=== PATIENT | female | born 1950 | race Caucasian/White ===

== ENCOUNTER 2018-11-18 08:30 | Day surgery (SDC) | payer MEDICARE ==
[2018-11-14 14:35] VITALS: BP 155/77
[2018-11-14 14:45] LABS: BASOPHILS % (AUTO) 3.6 % (0.0-5.0); EOSINOPHILS % (AUTO) 5.2 % (0.0-8.0); LYMPHOCYTES % (AUTO) 30.3 % (21.0-51.0); MEAN CORPUSCULAR HEMOGLOBIN 31.3 pg (27.0-33.0); MEAN CORPUSCULAR HGB CONC 34.3 g/dL (32.0-36.0); MEAN CORPUSCULAR VOLUME 91.1 fL (79-99); MONOCYTES % (AUTO) 9.7 % (3.0-13.0); NEUTROPHILS % (AUTO) 51.2 % (40.0-77.0); PLATELET COUNT (AUTO) 367 K/uL (130-400); RED BLOOD CELL COUNT(AUTO) 4.82 MIL/uL (4.00-5.50); RED CELL DISTRIBUTION WIDTH 12.5 % (11.0-15.5); WHITE BLOOD COUNT (AUTO) 7.4 K/uL (4.8-10.8)
[2018-11-14 14:51] LABS: APPEARANCE,URINE CLOUDY (CLEAR); BILIRUBIN,URINE NEGATIVE (NEGATIVE); COLOR,URINE YELLOW (YELLOW); GLUCOSE, URINE (UA) NEGATIVE (NEGATIVE); KETONES,URINE NEGATIVE (NEGATIVE); LEUKOCYTE ESTERASE ,URINE SMALL (NEGATIVE); NITRATE,URINE POSITIVE (NEGATIVE); OCCULT BLOOD,URINE NEGATIVE (NEGATIVE); PROTEIN,URINE NEGATIVE (NEGATIVE)
[2018-11-14 14:52] LABS: POTASSIUM 3.9 mmol/L (3.5-5.1)
[2018-11-14 14:57] LABS: BACTERIA,URINE Moderate /HPF (None Seen); RBC,URINE 0-1 /HPF (0-1)
[2018-11-14 14:58] LABS: SQUAMOUS EPITHELIAL CELL,UR Rare /HPF (0-2)
--- NOTE | 2018-11-17 14:00 | NUR ---
ABNORMAL LABS UA RESULT FAXED TO DR. SANTA'S OFFICE EARLIER FOR REVIEW. CALL BACK FROM CLINIC, SPOKE TO LAVONNE. PER DR. SANTA, NO FURTHER ORDERS. MAY PROCEED WITH PLANNED PROCEDURE.
[2018-11-18] VITALS (13 sets, daily range): BP systolic 116–126; BP diastolic 60–81
[~2018-11-18] VITALS: Ht 165.1 cm; Wt 84.6 kg
[~2018-11-18 08:30] MED LIST: LACTATED RINGERS 1000ML 1,000 ML IV SCH
[2018-11-18] MEDS: CEFAZOLIN SODIUM 1 GM VIAL IVP SCH ×2 (09:00→10:40)
[2018-11-18] MEDS ORDERED: LEVO25TA54 PO (09:48)
[2018-11-18] MEDS ORDERED: AMLO-128 PO (09:48)
[2018-11-18] MEDS ORDERED: CELE100C97 PO (09:48)
[2018-11-18] MEDS ORDERED: FLUT15.88 NS (09:48)
[2018-11-18] MEDS ORDERED: DULO60CA63 PO (09:48)
[2018-11-18] MEDS ORDERED: CETI10TA57 PO (09:48)
[2018-11-18] MEDS ORDERED: TOLT4CAP13 PO (09:48)
[2018-11-18] MEDS ORDERED: TRAM50TA4 PO (09:48)
[2018-11-18] MEDS ORDERED: LIDOCAINE PF 2% 5ML ABBOJECT ONE (10:11)
[2018-11-18] MEDS ORDERED: MIDAZOLAM HCL 1 MG/ML 2ML VIAL ONE (10:11)
[2018-11-18] MEDS ORDERED: PROPOFOL 10 MG/ML 20ML VIAL IV ONE (10:11)
[2018-11-18] MEDS ORDERED: ROCURONIUM 10MG/1ML SYR 10 MG/ML ML ONE (10:11)
[2018-11-18] MEDS ORDERED: FENTANYL CITRATE PF 50 MCG/1 ML 5ML AMP IV ONE (10:12)
[2018-11-18] MEDS ORDERED: BUPIVACAINE/PF 0.25% 30ML VIAL IJ ONE (10:49)
[2018-11-18] MEDS ORDERED: ONDANSETRON HCL 4 MG/2 ML VIAL ONE (10:52)
[2018-11-18] MEDS ORDERED: DEXAMETHASONE SOD PHOSPHATE 10MG/ML 1ML VIAL ONE (10:53)
[2018-11-18] MEDS ORDERED: NEOSTIGMINE 5MG/5ML SYR IV ONE (11:30)
[2018-11-18] MEDS ORDERED: GLYCOPYRROLATE 1 MG/5 ML SYRINGE ONE (11:30)
== END 2018-11-18 13:31 | disposition home or self-care (01) ==
LOC: DAH 08:30
PROVIDERS: ATTEND Surgery
DX: K42.9 Umbilical hernia without obstruction or gangrene (principal); K43.2 Incisional hernia without obstruction or gangrene; I10 Essential (primary) hypertension; I25.2 Old myocardial infarction; M19.90 Unspecified osteoarthritis, unspecified site; E03.9 Hypothyroidism, unspecified
CPT/HCPCS: 36415; 49560; 49568; 49585; 80048; 81001; 85025; 93005; A4450; A4452; A4600; A4606; C1781; J0690; J1100; J2001; J2250; J2405; J2704; J2710; J3010; J3490 ×2; J7120 ×2

== ENCOUNTER 2020-07-24 21:51 | Inpatient (IN) | payer MEDICARE ==
[~2020-07-24] VITALS: Ht 165.1 cm; Wt 83.9 kg
[~2020-07-24 21:51] MED LIST changes: +AMLO-142 PO; +CELE100C97 PO; +CETI10TA57 PO; +DULO60CA64 PO; +FLUT15.845 NS; -LACTATED RINGERS 1000ML 1,000 ML IV SCH; +LEVO25TA54 PO; +TOLT4CAP27 PO; +TRAM50TA4 PO
[2020-07-24] MEDS ORDERED: FAMOTIDINE 20MG VIAL IV ONE (22:16)
[2020-07-24] MEDS ORDERED: 0.9%NACL 1000ML 1,000 ML IV ONE (22:17)
[2020-07-24 22:20] LABS: BASOPHILS % (AUTO) 0.4 % (0.0-5.0); EOSINOPHILS % (AUTO) 0.5 % (0.0-8.0); HEMATOCRIT 46.1 % (36-48); LYMPHOCYTES % (AUTO) 11.9 % (21.0-51.0); MEAN CORPUSCULAR HEMOGLOBIN 30.4 pg (27.0-33.0); MEAN CORPUSCULAR HGB CONC 34.7 g/dL (32.0-36.0); MEAN CORPUSCULAR VOLUME 87.6 fL (79-99); MONOCYTES % (AUTO) 10.2 % (3.0-13.0); NEUTROPHILS % (AUTO) 76.1 % (40.0-77.0); PLATELET COUNT (AUTO) 294 K/uL (130-400); RED BLOOD CELL COUNT(AUTO) 5.26 MIL/uL (4.00-5.50); RED CELL DISTRIBUTION WIDTH 12.9 % (11.0-15.5); WHITE BLOOD COUNT (AUTO) 20.5 K/uL (4.8-10.8)
[2020-07-24 22:20] LABS: APPEARANCE,URINE Clear (CLEAR); BILIRUBIN,URINE Negative (NEGATIVE); COLOR,URINE Yellow (YELLOW); GLUCOSE, URINE (UA) Negative (NEGATIVE); KETONES,URINE Negative (NEGATIVE); LEUKOCYTE ESTERASE ,URINE Trace (NEGATIVE); NITRATE,URINE Negative (NEGATIVE); OCCULT BLOOD,URINE Negative (NEGATIVE); PH,URINE 6.5 (5.0-8.0); PROTEIN,URINE Negative (NEGATIVE)
[2020-07-24 22:29] LABS: BACTERIA,URINE Few /HPF (None Seen); MUCUS,URINE Moderate LPF (None Seen); RBC,URINE None Seen /HPF (0-1); SQUAMOUS EPITHELIAL CELL,UR Moderate /HPF (0-2)
[2020-07-24 22:33] LABS: CREATININE 1.4 mg/dL (0.5-1.5); POTASSIUM 3.7 mmol/L (3.5-5.1)
[2020-07-24 22:38] LABS: ALBUMIN 3.4 g/dL (3.5-5.0); BILIRUBIN,TOTAL 0.8 mg/dL (0.2-1.0); TOTAL PROTEIN, SERUM 7.5 g/dL (6.0-8.3)
[2020-07-24] MEDS ORDERED: LEVOFLOXACIN 500 MG/D5W 100 ML 100 ML ONE (23:22)
[2020-07-24] MEDS ORDERED: METRONIDAZOLE 500MG/100ML BAG 100 ML ONE (23:23)
[2020-07-25] MEDS ORDERED: GUAIFENESIN-DM 200/20 MG 10 ML PO PRN (00:15)
[2020-07-25] MEDS ORDERED: ACETAMINOPHEN 325 MG TAB PO PRN ×2 (00:15)
[2020-07-25] MEDS ORDERED: DiphenhydrAMINE HCL 50 MG/ML VIAL IV PRN (00:15)
[2020-07-25] MEDS ORDERED: LACTULOSE 20 GM/30 ML UDCUP PO PRN (00:15)
[2020-07-25] MEDS ORDERED: MAG/ALUM/SIMETH 30 ML UDCUP PO PRN (00:15)
[2020-07-25] MEDS ORDERED: NITROGLYCERIN 0.4 MG SL TAB SL PRN (00:15)
[2020-07-25] MEDS ORDERED: DIPHENHYDRAMINE HCL 25 MG CAPSULE PO PRN (00:15)
[2020-07-25] MEDS ORDERED: ONDANSETRON 4MG INJ IV PRN (00:15)
[2020-07-25] MEDS ORDERED: MORPHINE 2 MG SYG IV PRN (00:15)
[2020-07-25] MEDS: DEXTROSE 5%-LACTATED RINGERS 1,000 ML IV SCH ×2 (00:15→10:15)
[2020-07-25] MEDS ORDERED: ZOSYN 3.375GM+NS 50ML 50 ML IV ONE ×2 (00:44→19:11)
[2020-07-25] MEDS ORDERED: DEXTROSE 5%-LACTATED RINGERS 1,000 ML IV ONE (00:44)
[2020-07-25 01:20] LABS: HEMOGLOBIN A1C 5.7 % (4.0-6.0)
[2020-07-25 07:03] LABS: BASOPHILS % (AUTO) 0.4 % (0.0-5.0); EOSINOPHILS % (AUTO) 0.6 % (0.0-8.0); LYMPHOCYTES % (AUTO) 13.6 % (21.0-51.0); MEAN CORPUSCULAR HEMOGLOBIN 30.4 pg (27.0-33.0); MEAN CORPUSCULAR HGB CONC 34.5 g/dL (32.0-36.0); MEAN CORPUSCULAR VOLUME 88.1 fL (79-99); MONOCYTES % (AUTO) 10.2 % (3.0-13.0); NEUTROPHILS % (AUTO) 74.6 % (40.0-77.0); PLATELET COUNT (AUTO) 241 K/uL (130-400); RED BLOOD CELL COUNT(AUTO) 4.77 MIL/uL (4.00-5.50); WHITE BLOOD COUNT (AUTO) 14.5 K/uL (4.8-10.8)
[2020-07-25 07:24] LABS: INR 1.09 (0.85-1.15); PROTHROMBIN TIME 11.8 SEC (9.6-11.6)
[2020-07-25 07:26] LABS: PARTIAL THROMBOPLASTIN TIME 26.5 SEC (26.3-35.5)
[2020-07-25 07:27] LABS: ALBUMIN 2.9 g/dL (3.5-5.0); BILIRUBIN,TOTAL 0.8 mg/dL (0.2-1.0); POTASSIUM 3.6 mmol/L (3.5-5.1); TOTAL PROTEIN, SERUM 6.6 g/dL (6.0-8.3)
[2020-07-25] MEDS: ZOSYN 3.375GM+NS 50ML 50 ML IV SCH ×3 (08:00→16:00)
[2020-07-25] MEDS ORDERED: METO75TA PO (08:20)
[2020-07-25] MEDS ORDERED: DULO60CA64 PO (08:20)
[2020-07-25] MEDS ORDERED: AMLO-258 PO (08:20)
[2020-07-25] MEDS ORDERED: BENA40TA92 PO (08:20)
[2020-07-25] MEDS: FAMOTIDINE 20MG VIAL IV SCH ×2 (09:00→21:00)
[2020-07-25] MEDS: ENOXAPARIN SODIUM 30 MG/0.3 ML SQ SCH (09:00)
[2020-07-25] MEDS ORDERED: FAMOTIDINE 20MG VIAL IV ONE ×2 (09:03→21:39)
[2020-07-25] MEDS ORDERED: ENOXAPARIN SODIUM 30 MG/0.3 ML SQ ONE (09:03)
[2020-07-25] MEDS ORDERED: METOPROLOL TARTRATE 50 MG TAB ONE ×2 (09:36→21:32)
[2020-07-25] MEDS ORDERED: AMLODIPINE 5 MG TAB ONE (09:36)
[2020-07-25] MEDS ORDERED: METOPROLOL TARTRATE 25 MG TAB ONE (09:37)
[2020-07-25] MEDS: BENAZEPRIL HCL 10 MG TABLET PO SCH (21:00)
[2020-07-25] MEDS: METOPROLOL TARTRATE 50 MG TAB PO SCH (21:00)
[2020-07-25] MEDS: PEG 3350/NA SULF,BICARB,CL/KCL 4000 ML SOLN PO SCH (22:00)
[2020-07-26] MEDS ORDERED: ZOSYN 3.375GM+NS 50ML 50 ML IV ONE (00:02)
[2020-07-26] MEDS ORDERED: ACETAMINOPHEN 325 MG TAB ONE (00:02)
[2020-07-26 04:50] VITALS: BP 135/71
[2020-07-26 06:05] LABS: BASOPHILS % (AUTO) 0.9 % (0.0-5.0); EOSINOPHILS % (AUTO) 2.8 % (0.0-8.0); HEMATOCRIT 41.3 % (36-48); LYMPHOCYTES % (AUTO) 19.7 % (21.0-51.0); MEAN CORPUSCULAR HEMOGLOBIN 30.1 pg (27.0-33.0); MEAN CORPUSCULAR HGB CONC 33.7 g/dL (32.0-36.0); MEAN CORPUSCULAR VOLUME 89.4 fL (79-99); NEUTROPHILS % (AUTO) 67.3 % (40.0-77.0); PLATELET COUNT (AUTO) 222 K/uL (130-400); RED BLOOD CELL COUNT(AUTO) 4.62 MIL/uL (4.00-5.50); RED CELL DISTRIBUTION WIDTH 12.9 % (11.0-15.5); WHITE BLOOD COUNT (AUTO) 12.1 K/uL (4.8-10.8)
[2020-07-26 07:28] LABS: ALBUMIN 3.1 g/dL (3.5-5.0); BILIRUBIN,TOTAL 0.7 mg/dL (0.2-1.0); CREATININE 1.2 mg/dL (0.5-1.5); CRP QUANTITATIVE 71.4 mg/L (0.00-9.0); POTASSIUM 3.1 mmol/L (3.5-5.1); TOTAL PROTEIN, SERUM 6.6 g/dL (6.0-8.3)
[2020-07-26] MEDS ORDERED: PEG 3350/NA SULF,BICARB,CL/KCL 4000 ML SOLN PO PRN (07:30)
[2020-07-26 08:21] VITALS: BP 146/64
[2020-07-26] MEDS: ZOSYN 3.375GM+NS 50ML 50 ML IV SCH ×3 (08:45→15:44)
[2020-07-26] MEDS: FAMOTIDINE 20MG VIAL IV SCH ×2 (08:45→19:58)
[2020-07-26] MEDS: LEVOTHYROXINE 25 MCG TABLET PO SCH (08:45)
[2020-07-26] MEDS: METOPROLOL TARTRATE 50 MG TAB PO SCH ×2 (08:46→19:59)
[2020-07-26] MEDS: AMLODIPINE 5 MG TAB PO SCH (08:47)
[2020-07-26] MEDS: ENOXAPARIN SODIUM 30 MG/0.3 ML SQ SCH ×2 (08:52→21:29)
[2020-07-26] MEDS ORDERED: POTASSIUM CHLORIDE 20MEQ/100ML 100 ML IV PRN ×2 (09:30→10:30)
[2020-07-26] MEDS ORDERED: MAGNESIUM 2GM PREMIX 50ML 50 ML IV PRN (09:30)
[2020-07-26] MEDS ORDERED: LIDOCAINE HCL-MPF 1% 2ML VIAL IV PRN (10:30)
[2020-07-26] MEDS ORDERED: POTASSIUM CHLORIDE 10% ELIXIR 20 MEQ/15 ML UDCUP PO PRN (10:30)
[2020-07-26] MEDS: KCL 20 MEQ ERTAB PO PRN ×3 (11:07→15:44)
[2020-07-26] MEDS: DULOXETINE HCL 30 MG CAP PO SCH (11:07)
[2020-07-26 11:37] VITALS: BP 132/75
[2020-07-26] MEDS: PEG 3350/NA SULF,BICARB,CL/KCL 4000 ML SOLN PO SCH (12:49)
[2020-07-26 16:14] VITALS: BP 139/16
[2020-07-26] MEDS: BENAZEPRIL HCL 10 MG TABLET PO SCH (19:58)
[2020-07-26 20:54] VITALS: BP 139/69
[2020-07-27] VITALS (12 sets, daily range): BP systolic 113–148; BP diastolic 65–78
[2020-07-27] MEDS: ZOSYN 3.375GM+NS 50ML 50 ML IV SCH ×2 (00:26→11:07)
[2020-07-27] MEDS: AMLODIPINE 5 MG TAB PO SCH ×2 (06:15→11:05)
[2020-07-27] MEDS: METOPROLOL TARTRATE 50 MG TAB PO SCH (06:15)
[2020-07-27 06:28] LABS: BASOPHILS % (AUTO) 1.7 % (0.0-5.0); HEMATOCRIT 41.6 % (36-48); LYMPHOCYTES % (AUTO) 30.7 % (21.0-51.0); MEAN CORPUSCULAR HEMOGLOBIN 30.1 pg (27.0-33.0); MEAN CORPUSCULAR HGB CONC 34.4 g/dL (32.0-36.0); MEAN CORPUSCULAR VOLUME 87.6 fL (79-99); MONOCYTES % (AUTO) 9.8 % (3.0-13.0); NEUTROPHILS % (AUTO) 51.3 % (40.0-77.0); PLATELET COUNT (AUTO) 284 K/uL (130-400); RED BLOOD CELL COUNT(AUTO) 4.75 MIL/uL (4.00-5.50); RED CELL DISTRIBUTION WIDTH 12.5 % (11.0-15.5); WHITE BLOOD COUNT (AUTO) 8.1 K/uL (4.8-10.8)
[2020-07-27 06:45] LABS: ALBUMIN 3.4 g/dL (3.5-5.0); BILIRUBIN,TOTAL 0.7 mg/dL (0.2-1.0); CREATININE 1.2 mg/dL (0.5-1.5); POTASSIUM 3.2 mmol/L (3.5-5.1); TOTAL PROTEIN, SERUM 7.4 g/dL (6.0-8.3)
[2020-07-27] MEDS ORDERED: PROPOFOL 10 MG/ML 20ML VIAL IV ONE ×2 (08:14)
[2020-07-27] MEDS: FAMOTIDINE 20MG VIAL IV SCH (09:00)
[2020-07-27] MEDS: LEVOTHYROXINE 25 MCG TABLET PO SCH (09:00)
[2020-07-27] MEDS: ENOXAPARIN SODIUM 30 MG/0.3 ML SQ SCH (11:04)
[2020-07-27] MEDS: KCL 20 MEQ ERTAB PO PRN (11:05)
[2020-07-27] MEDS: DULOXETINE HCL 30 MG CAP PO SCH (11:06)
== END 2020-07-27 12:40 | disposition home or self-care (01) | DRG 372 ==
LOC: EDH 21:51 → EDHIP 07-25 00:01 → 3DH 07-26 04:36
PROVIDERS: ADMIT Family Medicine; ATTEND Family Medicine
PROC: 0DBK8ZZ Excision of Ascending Colon, Via Natural or Artificial Opening Endoscopic (ICD-10-PCS; principal; 2020-07-27)
PROC: 0DBM8ZX Excision of Descending Colon, Via Natural or Artificial Opening Endoscopic, Diagnostic (ICD-10-PCS; 2020-07-27)
PROC: 0DBG8ZX Excision of Left Large Intestine, Via Natural or Artificial Opening Endoscopic, Diagnostic (ICD-10-PCS; 2020-07-27)
DX: A04.9 Bacterial intestinal infection, unspecified (principal); N17.9 Acute kidney failure, unspecified; K63.3 Ulcer of intestine; K58.9 Irritable bowel syndrome, unspecified; I10 Essential (primary) hypertension; E86.0 Dehydration; K63.89 Other specified diseases of intestine; K63.5 Polyp of colon; F41.9 Anxiety disorder, unspecified; Z82.3 Family history of stroke; Z82.5 Family history of asthma and other chronic lower respiratory diseases; Z90.5 Acquired absence of kidney; Z90.49 Acquired absence of other specified parts of digestive tract
CPT/HCPCS: 36415; 45380; 74176; 80053; 81001; 82270; 83036; 83690; 84484; 85025; 85610; 85730; 86140; 87177; 87507; 93005; A4606; G0378; J1650; J1956; J2543; J2704; J3490; J7030

== ENCOUNTER → 2025-05-06 | Outpatient (CLI) | payer OTHER ==
[~2025-05-06] MED LIST changes: -AMLO-142 PO; +AMLO-258 PO; +BENA40TA92 PO; -CELE100C97 PO; -CETI10TA57 PO; -FLUT15.845 NS; +METO75TA PO; -TOLT4CAP27 PO; -TRAM50TA4 PO
--- NOTE | 2025-05-06 21:36 | HMCIMG ---
STUDY: X-RAY OF THE CHEST, 2 VIEWS HISTORY: Chronic obstructive pulmonary disease and congestive heart failure. TECHNIQUE: PA and lateral views of the chest are submitted for interpretation. COMPARISON: None provided. FINDINGS: Pulmonary adams: Lungs are clear without focal consolidation, pulmonary edema, or discrete pulmonary nodules. No hyperinflation, bullous change, or emphysematous blebs are identified. Cardiac silhouette: Cardiac silhouette is within normal limits for size and contour. Mediastinum and marcel: Mediastinal contours and hilar structures are within normal limits without widening or discrete mass. Osseous structures: Visualized ribs, clavicles, and thoracic spine show no acute osseous abnormality. Miscellaneous: No pleural effusion or pneumothorax. Costophrenic angles are sharp bilaterally. No free subdiaphragmatic air. No lines, tubes, or implanted devices are identified. IMPRESSION: * No radiographic evidence of acute cardiopulmonary abnormality. * No specific radiographic stigmata of decompensated congestive heart failure or advanced emphysematous change on this examination. /[place]
== END | disposition home or self-care (01) ==
LOC: RAH 10:17
PROVIDERS: ATTEND Internal Medicine
DX: J44.9 Chronic obstructive pulmonary disease, unspecified (principal); I50.9 Heart failure, unspecified
CPT/HCPCS: 71046

== ENCOUNTER → 2025-05-17 | Outpatient (CLI) | payer OTHER ==
--- NOTE | 2025-05-17 20:41 | HMCSR ---
APPROVED REPORT EXAM: Two-dimensional and M-mode echocardiogram with Doppler and color Doppler. INDICATION ICD: I50.9 Heart failure, unspecified, 428.0 2D Dimensions RVDd 3.2 cm LVEF(%) 63.1 (>50%) LVED Vol(simp.) 83.0 mL IVSd 0.9 (0.7-1.1cm) FS(%) 34 % LVES Vol(simp.) 34.0 mL LVDd 3.8 (3.8-5.6cm) LA (2D) 3.8 (1.6-4.0cm) LVEF(%, simp.) 59 % PWd 0.7 (0.7-1.1cm) LVOT diam 2.2 (1.8-2.4cm) LA ESV INDEX (BP) 26.71 mL/m2 IVSs 1.0 cm IVC diam 1.2 cm LVDs 2.5 (2.5-4.0cm) PWs 1.2 cm M-Mode Dimensions EPSS 0.4 cm LA (MM) 3.9 (1.6-4.0cm) Ao Root(MM) 2.8 (2.0-3.7cm) Aortic Valve AoV Vmax 1.2 m/s Ao Peak GR 5.6 mmHg LVOT Vmax 1.2 m/s AoV VTI 0.2 m Ao Mean GR 3.4 mmHg LVOT VTI 0.21 m ILIANA (VMAX) 3.83 cm2 ILIANA (VTI) 3.4 cm2 Mitral Valve MV E Vmax 81.0 cm/s DECEL Time 171 ms MV A Vmax 112.8 cm/s P 1/2 T 58 ms E/A ratio 0.7 MVA (PHT) 3.8 cm2 TDI E/E' Medial 15.9 E/E' Lateral 12.2 Medial E' Peak V 5.11 cm/s Lateral E' Peak V 6.66 cm/s Pulmonary Valve PV Vmax 0.8 m/s PI End Dariana. Laci 107.4 cm/s PV Mean GR 1.8 mmHg PV Peak GR 2.8 mmHg Tricuspid Valve TR Vmax 2.1 m/s RAP (EST) 3 mmHg RVSP 21.5 mmHg TR Peak GR 18.5 mmHg Left Ventricle The left ventricle is normal size. There is normal left ventricular wall thickness. LVEF is 55-60%. Stage I diastolic dysfunction. Right Ventricle The right ventricle is normal size. The right ventricular systolic function is normal. Atria The left atrium size is normal. The right atrium size is normal. Aortic Valve Aortic valve is trileaflet, mildly thickened and opens well. No aortic regurgitation is present. There is no aortic valvular stenosis. Mitral Valve The mitral valve is normal in structure. There is trace of mitral valve regurgitation noted. There is no mitral valve stenosis. Tricuspid Valve The tricuspid valve is normal in structure. There is trace of tricuspid valve regurgitation noted. Pulmonic Valve The pulmonary valve is normal in structure. There is trace of pulmonic valvular regurgitation. Great Vessels The aortic root is normal in size. The IVC is normal in size and collapses >50% with inspiration. Pericardium There is no pericardial effusion. Other Information Quality : Adequate Conclusion LVEF is 55-60%. Stage I diastolic dysfunction.
== END | disposition home or self-care (01) ==
LOC: RAH 13:04
PROVIDERS: ATTEND Internal Medicine
DX: I35.1 Nonrheumatic aortic (valve) insufficiency (principal); I50.9 Heart failure, unspecified; I51.89 Other ill-defined heart diseases
CPT/HCPCS: 93306